=== PATIENT | female | born 1960 | race Caucasian/White ===

== ENCOUNTER 2019-05-17 07:56 | Day surgery (SDC) | payer BC, OTHER ==
[~2019-05-17 07:56] MED LIST: KETOROLAC TROMETHAMINE 0.45% 4 DROP/0.4 ML DROPERETTE OD PRN
[2019-05-17] MEDS: CYCLOPENTOLATE 0.2%/PHENYLEPHRINE 1% OPH SOLN 2 ML OD PRN ×3 (08:30→08:50)
[2019-05-17] MEDS: BESIFLOXACIN HCL 0.6% OPH SUSP 5 ML BOTTLE OD PRN ×4 (08:30→09:42)
[2019-05-17] MEDS: TROPICAMIDE 1% OPH SOLN 3 ML OD PRN ×3 (08:30→08:50)
[2019-05-17] MEDS: TETRACAINE HCL 0.5% OPH SOLN 4 ML OD PRN ×3 (08:31→09:07)
[2019-05-17] MEDS: LIDOCAINE 4% INJ/PF (40 MG/ML) 5 ML AMPUL OD PRN ×2 (09:15)
[2019-05-17] MEDS: BUPIVACAINE HCL 0.75% INJ/PF (7.5 MG/1 ML) 10 ML SDV OD PRN ×2 (09:15)
[2019-05-17] MEDS ORDERED: MIDAZOLAM 2 MG/2 ML INJ ONE (09:17)
[2019-05-17] MEDS ORDERED: FENTANYL CITRATE INJ/PF 100 MCG/2 ML AMPUL ONE (09:18)
[2019-05-17] MEDS: EPINEPHRINE INJ/PF 1 MG/1 ML AMPULE ONE ×2 (09:23)
[2019-05-17] MEDS: LIDOCAINE 1% INJ-PF (10 MG/ML) 30 ML SDV ONE ×2 (09:23)
[2019-05-17] MEDS: CHONDR SU A NA/HYALUR INTRAOC KIT (SURGICARE) ONE ×2 (09:23)
[2019-05-17] MEDS: DORZOLAMIDE HCL 2%/TIMOLOL MALEAT 0.5% OPH SOLN 10 ML OD PRN ×2 (09:42)
--- NOTE | 2019-05-18 00:05 | [facility] OPERATIVE REPORT E ---
[facility] Operative Report NAME: MEREDITH REDDY AGE: 58Y DATE OF SURGERY: 05/17/2019 ROOM: PREOPERATIVE DIAGNOSIS: CATARACT RIGHT EYE. POSTOPERATIVE DIAGNOSIS: CATARACT RIGHT EYE. PROCEDURE PERFORMED: Phacoemulsification with Symfony intraocular lens implant, right eye. SURGEON: SIMON JOHNSON M.D. ANESTHESIA: Topical with MAC. INDICATIONS FOR SURGERY: Difficulty reading road signs and small print. PROCEDURE: The patient was brought to the operating room and placed on the operative table. Following tetracaine drops, topical anesthesia was administered. This consisted of instrument wipe pledgets soaked in a solution of 4% Xylocaine mixed with 0.75% Marcaine in a 1:2 ratio. A 2 x 1 cm pledget was placed in the superior fornix. A 1 x 1 cm pledget was placed in the inferior fornix. The eye was patched shut for 5 minutes. The patch was removed. The eye was sterilely prepped and draped in the usual manner. Lid speculum was placed in the eye. The pledgets were removed and 4-0 black silk sutures were placed around the superior and the inferior rectus muscles to be used as traction. A conjunctival peritomy was made at the 10 o'clock position. Hemostasis was obtained with bipolar cautery. A posterior limbal groove was created using a crescent knife and dissected anteriorly towards the cornea. A sharp point blade was used to create a paracentesis site at the 2 o'clock position. A 2.4 mm keratome was used to enter the anterior chamber through the groove. Viscoelastic was injected into the anterior chamber. An anterior capsulotomy was performed using Utrata forceps in a capsulorrhexis fashion. Hydrodissection and hydrodelineation were performed. Phacoemulsification was performed in [id number] technique. Total phaco time was 2.86 CDE. Following this, the I/A unit was used to remove residual cortex. Viscoelastic was injected into the capsular bag. Intraocular lens model ZXR00, 19.0 diopters, serial number [id number], was placed in the capsular bag. The I/A unit was used to remove residual viscoelastic. The wound was seen to be watertight under high and low pressure, and no sutures were placed. The intraocular lens was well centered. The pressure was adjusted in the eye to normal pressure. The 4-0 black silk sutures and lid speculum were removed. The eye was shielded after Cosopt was placed in the eye at the end of surgery. The patient tolerated the procedure well and was sent to the recovery room in good condition. DICTATING PHYSICIAN: SIMON JOHNSON M.D. [id number] PHY#: [id number] ID: [id number] JOB#: [id number] ACCT: [id number] cc:SIMON JOHNSON M.D. >
--- NOTE | 2019-05-18 00:20 | [facility] DISCHARGE SUMMARY E ---
[facility] Discharge Summary NAME: MEREDITH REDDY AGE: 58Y ADMITTED: 05/17/2019 DISCHARGED: 05/17/2019 FINAL DIAGNOSIS: CATARACT RIGHT EYE. PROCEDURE PERFORMED: Phacoemulsification with Symfony intraocular lens implant, right eye. INDICATIONS FOR SURGERY: Difficulty reading road signs and small print. HOSPITAL COURSE: The patient is a 58-year-old lady who underwent uneventful cataract extraction with intraocular lens implant right eye on 05/17/19. She will be discharged to home. She is instructed to resume preoperative medications, take Tylenol as needed for discomfort. To keep her eyes shielded. To use Besivance, Ilevro, and Durezol at 3 p.m. and 8 p.m. To follow up in my office in 1 day. DICTATING PHYSICIAN: SIMON JOHNSON M.D. [id number] PHY#: [id number] ID: [id number] JOB#: [id number] ACCT: [id number] cc:SIMON JOHNSON M.D. >
== END 2019-05-17 10:14 | disposition home or self-care (01) ==
LOC: SC 07:56
PROVIDERS: ATTEND Ophthalmology
DX: H25.811 Combined forms of age-related cataract, right eye (principal); E03.9 Hypothyroidism, unspecified; J44.9 Chronic obstructive pulmonary disease, unspecified; F17.210 Nicotine dependence, cigarettes, uncomplicated; H04.123 Dry eye syndrome of bilateral lacrimal glands; H52.4 Presbyopia; Z79.51 Long term (current) use of inhaled steroids; Z79.82 Long term (current) use of aspirin
CPT/HCPCS: 66984; V2788; J2250; J3490 ×5; J0171; J3010; 142

== ENCOUNTER 2019-06-07 07:55 | Day surgery (SDC) | payer BC, OTHER ==
[~2019-06-07 07:55] MED LIST changes: +BUPIVACAINE HCL 0.75% INJ/PF (7.5 MG/1 ML) 10 ML SDV OS PRN; +CHONDR SU A NA/HYALUR INTRAOC KIT (SURGICARE) ONE; +EPINEPHRINE INJ/PF 1 MG/1 ML AMPULE ONE; -KETOROLAC TROMETHAMINE 0.45% 4 DROP/0.4 ML DROPERETTE OD PRN; +KETOROLAC TROMETHAMINE 0.45% 4 DROP/0.4 ML DROPERETTE OS PRN; +LIDOCAINE 1% INJ-PF (10 MG/ML) 30 ML SDV ONE; +LIDOCAINE 4% INJ/PF (40 MG/ML) 5 ML AMPUL OS PRN
[2019-06-07] MEDS: TETRACAINE HCL 0.5% OPH SOLN 4 ML OS PRN ×3 (08:50→09:33)
[2019-06-07] MEDS: TROPICAMIDE 1% OPH SOLN 3 ML OS PRN ×3 (08:50→09:15)
[2019-06-07] MEDS: CYCLOPENTOLATE 0.2%/PHENYLEPHRINE 1% OPH SOLN 2 ML OS PRN ×3 (08:50→09:15)
[2019-06-07] MEDS: BESIFLOXACIN HCL 0.6% OPH SUSP 5 ML BOTTLE OS PRN ×4 (08:50→09:56)
[2019-06-07] MEDS ORDERED: FENTANYL CITRATE INJ/PF 100 MCG/2 ML AMPUL ONE (09:13)
[2019-06-07] MEDS ORDERED: MIDAZOLAM 2 MG/2 ML INJ ONE (09:13)
[2019-06-07] MEDS: DORZOLAMIDE HCL 2%/TIMOLOL MALEAT 0.5% OPH SOLN 10 ML OS PRN ×2 (09:49→09:56)
--- NOTE | 2019-06-07 14:05 | Operative Report ---
Operative Report-[facility] Operative Report: DATE OF SURGERY: 06/07/2019 PREOPERATIVE DIAGNOSIS: CATARACT, LEFT EYE. POSTOPERATIVE DIAGNOSIS: CATARACT, LEFT EYE. PROCEDURE PERFORMED: PHACOEMULSIFICATION WITH POSTERIOR CHAMBER INTRAOCULAR LENS, LEFT EYE. Intraocular Lens Model : Z XR 0 0 18.5 Total Phaco Time: 33.7 seconds SURGEON: SIMON JOHNSON MD ANESTHESIA: TOPICAL WITH MAC. INDICATIONS FOR SURGERY: Difficultly driving at night, imbalance after right eye surgery PROCEDURE: The patient was brought to the Operating Room and placed on the operative table. Following tetracaine drops, topical anesthesia was administered. This consisted of instrument wipe pledgets soaked in a solution of 4% Xylocaine mixed with 0.75% Marcaine in a 1:2 ratio. A 2 x 1 cm pledget was placed in the superior fornix. A 1 x 1 cm pledget was placed in the inferior fornix. The eye was patched shut for 5 minutes. The patch was removed. The eye was sterilely prepped and draped in the usual manner. Lid speculum was placed in the eye. The pledgets were removed. 4-0 black silk sutures were placed around the superior and the inferior rectus muscles to be used as traction. A conjunctival peritomy was made at the 10 o'clock position. Hemostasis was obtained with bipolar cautery. A posterior limbal groove was created using a crescent knife and dissected anterio rly towards the cornea. A sharp point blade was used to create a paracentesis site at the 2 o'clock position. 0.2 cc non preserved Lidocaine was injected into the anterior chamber. A 2.4 mm keratome was used to enter the anterior chamber through the groove. Viscoelastic was injected into the anterior chamber. An anterior capsulotomy was performed using Utrata forceps in a capsulorrhexis fashion. Hydrodissection and hydrodelineation were performed. Phacoemulsification was performed in [id number] technique. Following this, the I/A unit was used to remove residual cortex. Viscoelastic was injected into the capsular bag. The Intraocular lens was placed in the capsular bag. The I/A unit was used to remove residual viscoelastic. The wound was seen to be watertight under high and low pressure, and no sutures were placed. The intraocular lens was well centered. The pressure was adjusted in the eye to normal pressure. The 4-0 black silk sutures and lid speculum were removed. The eye was shielded after Besivance and Cosopt drops were placed. The patient tolerated the procedure well and was sent to the Recovery Room in good condition.
--- NOTE | 2019-06-07 14:06 | PDOC DISCHARGE SUMMARY ---
Discharge Summary-[facility] Discharge Summary: DATE: 06/07/2019 FINAL DIAGNOSIS: CATARACT, LEFT EYE PROCEDURE: Cataract extraction with symfony multifocal intraocular lens implant left eye HOSPITAL COURSE: The patient will be discharged to home. The patient is instructed to resume preoperative medications, take Tylenol as needed for discomfort, to keep the eye shielded, They should use the prescribed antibiotic, NSAID, and steroid at 3 PM and 8 PM, and to follow up in my office in 1 day.
== END 2019-06-07 10:30 | disposition home or self-care (01) ==
LOC: SC 07:55
PROVIDERS: ATTEND Ophthalmology
DX: H25.812 Combined forms of age-related cataract, left eye (principal); Z96.1 Presence of intraocular lens; J44.9 Chronic obstructive pulmonary disease, unspecified; E07.9 Disorder of thyroid, unspecified; Z79.899 Other long term (current) drug therapy; Z79.82 Long term (current) use of aspirin; Z79.51 Long term (current) use of inhaled steroids
CPT/HCPCS: 66984; J2250; J3490 ×5; J0171; J3010; V2788